=== PATIENT | male | born 1995 | race American Indian/Alaskan Native ===

== ENCOUNTER 2021-04-30 11:43 | Emergency (ER) | payer SELFPAY ==
[2021-04-30] MEDS ORDERED: TETANUS,DIPH,PERTUSS(ACELL) VACCINE 0.5 ML SYRINGE IM ONE (11:44)
[2021-04-30 11:51] VITALS: BP 135/87
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
[2021-04-30] MEDS ORDERED: HYDROcodone/ACETAMINOPHEN 5-325 MG TAB PO NR (12:00)
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
[2021-04-30] MEDS ORDERED: LIDOCAINE (1%) 10 MG/1 ML VIAL 20 ML MDV INFILTRATI ONE (12:37)
[2021-04-30] MEDS ORDERED: HYDROGEN PEROXIDE 118 ML SOLUTION TP ONE (13:10)
== END 2021-04-30 14:16 | disposition home or self-care (01) ==
LOC: ED 11:43
DX: S41.112A Laceration without foreign body of left upper arm, initial encounter (principal); F12.90 Cannabis use, unspecified, uncomplicated; Z79.899 Other long term (current) drug therapy; W26.0XXA Contact with knife, initial encounter; Y93.89 Activity, other specified; Y92.89 Other specified places as the place of occurrence of the external cause; Y99.8 Other external cause status
CPT/HCPCS: 90471; 90715; 99283